=== PATIENT | female | born 1960 | race Caucasian/White ===

== ENCOUNTER 2024-06-10 12:39 | Emergency (ER) | payer OTHER, SELFPAY ==
[2024-06-10 12:44] VITALS: BP 129/85; PULSE 76; TEMP 36.8; O2SAT 97; BMI 28.3
--- NOTE | 2024-06-10 12:53 | ECG_ITS ---
[facility] Test Date: 2024-06-10 Pat Name: JUAN J EVANS Department: Room: - Gender: Female [employer]: : 1960 Requested By: Negar Esparza Order Number: [id number] Reading MD: KADEN SINGH Measurements Intervals [place] Rate: 73 P: 65 DC: 154 QRS: 94 QRSD: 88 T: 78 QT: 364 QTc: 390 Interpretive Statements 1100 Sinus rhythm 7102 Moderate right axis deviation 9110 normal ECG No previous ECG available for comparison Electronically Signed On 06-11-2024 7:49:44 EST by KADEN SINGH
--- NOTE | 2024-06-10 13:25 | XR_ITS ---
The [address] [address] Patient Name: JUAN J EVANS MRN: [id number] date: 1960 Sex: F Assigned Patient Location: ER Current Patient Location: ER Accession/Order Number: [id number] Exam Date: 06/10/2024 13:37 Report Date: 06/10/2024 14:44 At the request of: SAVANNA GUZMÁN Procedure: XR chest 1V EXAM: XR chest 1V HISTORY: cough COMPARISON: None. TECHNIQUE: AP upright chest x-ray. FINDINGS: Lungs clear without infiltrate or edema or other acute process. Heart size normal for technique. Mediastinal contour unremarkable separate from mild prominence of the ascending aorta medial to the right hilum. No pleural effusion or pneumothorax. XR/XR chest 1V IMPRESSION: No acute findings, clear lungs. Electronically authenticated by: WILFRID WONG Date: 06/10/2024 14:44
--- NOTE | 2024-06-10 13:28 | ED_ITS ---
Documented by User: LEXA Mcdonald 06/10/24 16:16 HPI HPI - General Adult General Chief complaint: Upper Respiratory Infection Stated complaint: HEARTBURN, SORE THROAT Time Seen by Provider: 06/10/24 13:15 Source: patient Mode of arrival: walk-in History of Present Illness HPI narrative: 63-year-old female presents to the ER with concerns of heartburn indigestion sensation. Patient states she noticed symptoms late last night, fell asleep and woke up this morning feeling better but then symptoms returned shortly after ambulation. She denies any fevers or chills. She denies any abdominal pain chest pain or shortness of breath she has had a nonproductive cough for several days. Feels like it is a cough something up but cannot. She acknowledges she has had heartburn symptoms on and off in the past but not that frequent she currently still feels the discomfort and points to her mid epigastric region radiating up her esophagus. She at times stimulates it to something being stuck in her throat but can swallow without difficulty patient sees Dr. Parnell she denies any history of heart disease. Onset (ago): day(s) Treatments prior to arrival: Reports none Related Data Previous Rx's ?Medication ?Instructions ?Recorded famotidine 40 mg tablet (Pepcid) 40 mg PO DAILY 21 days #21 tabs 06/10/24 Allergies Allergy/AdvReac Type Severity Reaction Status Date / Time No Known Drug Allergies Allergy Verified 06/10/24 12:48 Opioid HPI Opioid Management Most Recent Opioid Data: No Data to Display Review of Systems ROS Constitutional Denies: fever or chills Eyes Denies: change in vision Ears, nose, mouth, and throat Denies: throat pain, neck pain or throat swelling Cardiovascular Denies: chest pain, palpitations or leg pain with exertion Respiratory Reports: cough; Denies: shortness of breath, wheezing, coughing up blood or chest congestion Gastrointestinal Reports: abdominal pain (epigastric) and heartburn; Denies: nausea, vomiting or diarrhea Genitourinary Denies: painful urination Musculoskeletal Denies: back pain, neck pain or extremity pain Integumentary/Breast Denies: rash or itching Neurological Denies: headache Psychiatric Denies: anxiety or mood swings PFSH PFSH Social History Little interest or pleasure in doing things: not at all Feeling down, depressed, or hopeless: not at all Exam Narrative Exam Narrative: Nurses notes and vital signs reviewed and patient is not hypoxic. General: The patient appears well and in no apparent distress. Patient is resting comfortably on cart. Skin: Warm, dry, no pallor noted. No Rash noted Head: Normocephalic, atraumatic Neck: Supple, trachea mid-line, no tenderness, no lymphadenopathy Eye: Pupils are equal, round and reactive to light, EOMI Ears, Nose, Mouth, and Throat: TM are clear, normal light reflex, oral mucosa is moist, no posterior oropharynx erythema or hypertrophy, uvula is mid-line Cardiovascular: Regular Rate and Rhythm Respiratory: Patient is in no distress, no accessory muscle use, lungs are clear to auscultation, no wheezing, rales or rhonchi. Chest Wall: no tenderness Back: non-tender, no CVA tenderness Musculoskeletal: normal ROM, no tenderness, no swelling GI: Normal bowel sounds, no tenderness to palpation, no masses appreciated. No rebound, guarding, or rigidity noted. Abdomen is nonsurgical Neurological: A&O x4 Psychiatric: Cooperative Constitutional Vital Signs, click to edit/add: Last Vital Signs Temp 98.2 F 06/10/24 12:44 Pulse 76 06/10/24 12:44 Resp 16 06/10/24 12:44 BP 129/85 06/10/24 12:44 Pulse Ox 97 06/10/24 12:44 O2 Del Method Room Air 06/10/24 12:44 Course Vital Signs Vital signs: Vital Signs Temperature 98.2 F 06/10/24 12:44 Pulse Rate 76 06/10/24 12:44 Respiratory Rate 16 06/10/24 12:44 Blood Pressure 129/85 06/10/24 12:44 Pulse Oximetry 97 06/10/24 12:44 Oxygen Delivery Method Room Air 06/10/24 12:44 Temperature 98.2 F 06/10/24 12:44 Pulse Rate 76 06/10/24 12:44 Respiratory Rate 16 06/10/24 12:44 Blood Pressure 129/85 06/10/24 12:44 Pulse Oximetry 97 06/10/24 12:44 Oxygen Delivery Method Room Air 06/10/24 12:44 Medical Decision Making MDM Narrative Medical decision making narrative: Reviewed patient's symptoms of heartburn starting last night going away and then returning today. Currently present since this morning cardiac enzymes will be checked patient medicated for symptoms of heartburn she has not taken any daily medication for this in the past. She denies any symptoms on exertion she denies any floresita chest pain or shortness of breath. Patient reevaluated, symptoms, patient notes she is feeling better, when she takes a drink she can still feel the sensation but it has lessened. She will be given IV Toradol pending final troponin we will start pepcid Patient reports feeling much better after Toradol. Symptoms very minimal. Reviewed laboratory studies, chest x-ray repeat troponin within normal limits. Recommend follow-up to PCP but will start on Pepcid in the interim. Patient may return to the ER if symptoms persist or worsen. The patient is to followup with primary care physician in next 2-3 days or to return to the emergency department should any of the signs or symptoms worsen or new symptoms develop. Patient had questions answered. The patient agrees with the following Diagnosis and Treatment plan and the patient will be discharged home. Lab Data Lab results reviewed: Yes I reviewed the patient's lab results Labs: Lab Results 06/10/24 06/10/24 Range/Units 13:35 14:50 WBC 6.8 (4.0-11.0) 10^3/uL RBC 4.73 (4.20-5.40) 10^6/uL Hgb 14.8 (12.0-16.0) g/dL Hct 43.4 (36.0-48.0) % MCV 91.8 (81.0-99.0) fL MCH 31.3 (26.7-34.0) pg MCHC 34.1 (29.9-35.2) g/dL RDW 11.9 (11.0-15.0) % Plt Count 250 (150-450) 10^3/uL MPV 8.9 L (9.5-13.5) fL Neut % (Auto) 66.8 (43.0-75.0) % Lymph % (Auto) 22.1 (20.5-60.0) % [place] % (Auto) 9.2 (1.7-12.0) % Eos % (Auto) 1.0 (0.9-7.0) % Baso % (Auto) 0.6 (0.2-2.0) % Neut # (Auto) 4.6 (1.4-6.5) 10^3/uL Lymph # (Auto) 1.5 (1.2-3.8) 10^3/uL [place] # (Auto) 0.6 (0.3-0.8) 10^3/uL Eos # (Auto) 0.1 (0.0-0.7) 10^3/uL Baso # (Auto) 0.0 (0.0-0.1) 10^3/uL Abs Immat Gran (auto) 0.02 (0.00-0.03) 10^3/uL Imm/Tot Granulo (auto) 0.3 (0.0-0.5) % Sodium 140 (136-145) mmol/L Potassium 3.8 (3.5-5.1) mmol/L Chloride 105 (98-107) mmol/L Carbon Dioxide 29.7 (21.0-32.0) mmol/L Anion Gap 9.1 BUN 10.0 (7.0-18.0) mg/dL Creatinine 0.93 (0.55-1.02) mg/dL Est GFR ( Amer) >60 (>=60 mL/min/1.73m^2) Est GFR (Non-Af Amer) >60 (>=60 mL/min/1.73m^2) BUN/Creatinine Ratio 10.8 Glucose 94 (74-106) mg/dL Calcium 8.8 (8.5-10.1) mg/dL Total Bilirubin 0.6 (0.2-1.0) mg/dL AST 24 (15-37) U/L ALT 30 (14-59) U/L Alkaline Phosphatase 106 (46-116) U/L Troponin I High Sens <4.0 L <4.0 L (4.0-51.3) pg/mL Total Protein 6.9 (6.4-8.2) g/dL Albumin 3.6 (3.4-5.0) g/dL Globulin 3.3 g/dL Albumin/Globulin Ratio 1.1 Lipase 32.0 (16.0-77.0) U/L Imaging Data Chest x-ray: Attestation: I personally reviewed and interpreted this imaging study as follows: Radiologist's impression: ITS Impressions Chest X-Ray 06/10/24 13:25 IMPRESSION: No acute findings, clear lungs. Electronically authenticated by: WILFRID WONG Date: 06/10/2024 14:44 ECG Data Attestation: I personally reviewed and interpreted this ECG as follows: Interpretation: EKG interpretation: Emergency Department physician interpretation, normal sinus rhythm 73 bpm, no ectopy, no ST segment elevation, RAD Discharge Plan Discharge Chief Complaint: Upper Respiratory Infection Clinical Impression: Chest pain, GERD (gastroesophageal reflux disease) Patient Disposition: Home, Self-Care Time of Disposition Decision: 16:14 Condition: Good Prescriptions / Home Meds: New famotidine [Pepcid] 40 mg tablet 40 mg PO DAILY 21 Days Qty: 21 0RF Print Language: Ecuadorean Instructions: Chest Pain (ED), GERD (Gastroesophageal Reflux Disease) (ED) Referrals: BRIANNA PARNELL [Primary Care Provider] - As soon as possible Documented by User: Aldo Mahmood MD 06/10/24 16:22 HPI HPI - General Adult General Chief complaint: Upper Respiratory Infection Stated complaint: HEARTBURN, SORE THROAT Time Seen by Provider: 06/10/24 13:15 Related Data Previous Rx's ?Medication ?Instructions ?Recorded famotidine 40 mg tablet (Pepcid) 40 mg PO DAILY 21 days #21 tabs 06/10/24 Allergies Allergy/AdvReac Type Severity Reaction Status Date / Time No Known Drug Allergies Allergy Verified 06/10/24 12:48 Opioid HPI Opioid Management Most Recent Opioid Data: No Data to Display PFSH PFSH Social History Little interest or pleasure in doing things: not at all Feeling down, depressed, or hopeless: not at all Exam Constitutional Vital Signs, click to edit/add: Last Vital Signs Temp 98.2 F 06/10/24 12:44 Pulse 76 06/10/24 12:44 Resp 16 06/10/24 12:44 BP 129/85 06/10/24 12:44 Pulse Ox 97 06/10/24 12:44 O2 Del Method Room Air 06/10/24 12:44 Course Vital Signs Vital signs: Vital Signs Temperature 98.2 F 06/10/24 12:44 Pulse Rate 76 06/10/24 12:44 Respiratory Rate 16 06/10/24 12:44 Blood Pressure 129/85 06/10/24 12:44 Pulse Oximetry 97 06/10/24 12:44 Oxygen Delivery Method Room Air 06/10/24 12:44 Temperature 98.2 F 06/10/24 12:44 Pulse Rate 76 06/10/24 12:44 Respiratory Rate 16 06/10/24 12:44 Blood Pressure 129/85 06/10/24 12:44 Pulse Oximetry 97 06/10/24 12:44 Oxygen Delivery Method Room Air 06/10/24 12:44 Medical Decision Making MDM Narrative Medical decision making narrative: Reviewed patient's symptoms of heartburn starting last night going away and then returning today. Currently present since this morning cardiac enzymes will be checked patient medicated for symptoms of heartburn she has not taken any daily medication for this in the past. She denies any symptoms on exertion she denies any floresita chest pain or shortness of breath. Patient reevaluated, symptoms, patient notes she is feeling better, when she takes a drink she can still feel the sensation but it has lessened. She will be given IV Toradol pending final troponin we will start pepcid Patient reports feeling much better after Toradol. Symptoms very minimal. Reviewed laboratory studies, chest x-ray repeat troponin within normal limits. Recommend follow-up to PCP but will start on Pepcid in the interim. Patient may return to the ER if symptoms persist or worsen. The patient is to followup with primary care physician in next 2-3 days or to return to the emergency department should any of the signs or symptoms worsen or new symptoms develop. Patient had questions answered. The patient agrees with the following Diagnosis and Treatment plan and the patient will be discharged home. I, Dr Mahmood, have reviewed the above progress note and course of action in the ER; agree with the above. I have personally seen and evaluated this patient, gone over history and physical, and discussed disposition and treatment plan with the patient. Lab Data Labs: Lab Results 06/10/24 06/10/24 Range/Units 13:35 14:50 WBC 6.8 (4.0-11.0) 10^3/uL RBC 4.73 (4.20-5.40) 10^6/uL Hgb 14.8 (12.0-16.0) g/dL Hct 43.4 (36.0-48.0) % MCV 91.8 (81.0-99.0) fL MCH 31.3 (26.7-34.0) pg MCHC 34.1 (29.9-35.2) g/dL RDW 11.9 (11.0-15.0) % Plt Count 250 (150-450) 10^3/uL MPV 8.9 L (9.5-13.5) fL Neut % (Auto) 66.8 (43.0-75.0) % Lymph % (Auto) 22.1 (20.5-60.0) % [place] % (Auto) 9.2 (1.7-12.0) % Eos % (Auto) 1.0 (0.9-7.0) % Baso % (Auto) 0.6 (0.2-2.0) % Neut # (Auto) 4.6 (1.4-6.5) 10^3/uL Lymph # (Auto) 1.5 (1.2-3.8) 10^3/uL [place] # (Auto) 0.6 (0.3-0.8) 10^3/uL Eos # (Auto) 0.1 (0.0-0.7) 10^3/uL Baso # (Auto) 0.0 (0.0-0.1) 10^3/uL Abs Immat Gran (auto) 0.02 (0.00-0.03) 10^3/uL Imm/Tot Granulo (auto) 0.3 (0.0-0.5) % Sodium 140 (136-145) mmol/L Potassium 3.8 (3.5-5.1) mmol/L Chloride 105 (98-107) mmol/L Carbon Dioxide 29.7 (21.0-32.0) mmol/L Anion Gap 9.1 BUN 10.0 (7.0-18.0) mg/dL Creatinine 0.93 (0.55-1.02) mg/dL Est GFR ( Amer) >60 (>=60 mL/min/1.73m^2) Est GFR (Non-Af Amer) >60 (>=60 mL/min/1.73m^2) BUN/Creatinine Ratio 10.8 Glucose 94 (74-106) mg/dL Calcium 8.8 (8.5-10.1) mg/dL Total Bilirubin 0.6 (0.2-1.0) mg/dL AST 24 (15-37) U/L ALT 30 (14-59) U/L Alkaline Phosphatase 106 (46-116) U/L Troponin I High Sens <4.0 L <4.0 L (4.0-51.3) pg/mL Total Protein 6.9 (6.4-8.2) g/dL Albumin 3.6 (3.4-5.0) g/dL Globulin 3.3 g/dL Albumin/Globulin Ratio 1.1 Lipase 32.0 (16.0-77.0) U/L Imaging Data Chest x-ray: Radiologist's impression: ITS Impressions Chest X-Ray 06/10/24 13:25 IMPRESSION: No acute findings, clear lungs. Electronically authenticated by: WILFRID WONG Date: 06/10/2024 14:44 Discharge Plan Discharge Chief Complaint: Upper Respiratory Infection Clinical Impression: Chest pain, GERD (gastroesophageal reflux disease) Patient Disposition: Home, Self-Care Time of Disposition Decision: 16:14 Condition: Good Prescriptions / Home Meds: New famotidine [Pepcid] 40 mg tablet 40 mg PO DAILY 21 Days Qty: 21 0RF Print Language: Ecuadorean Instructions: Chest Pain (ED), GERD (Gastroesophageal Reflux Disease) (ED) Referrals: TANALYBRIANNA [Primary Care Provider] - As soon as possible
[2024-06-10 13:43] LABS: Basophils Percent Auto 0.6 % (0.2-2.0); Eosinophils Absolute Auto 0.1 10^3/uL (0.0-0.7); Hematocrit 43.4 % (36.0-48.0); Hemoglobin 14.8 g/dL (12.0-16.0); Immature Granulocytes Abs Auto 0.02 10^3/uL (0.00-0.03); Immature Granulocytes Pct Auto 0.3 % (0.0-0.5); Lymphocytes Absolute Auto 1.5 10^3/uL (1.2-3.8); Lymphocytes Percent Auto 22.1 % (20.5-60.0); Mean Corpuscular HGB Conc 34.1 g/dL (29.9-35.2); Mean Corpuscular Hemoglobin 31.3 pg (26.7-34.0); Mean Corpuscular Volume 91.8 fL (81.0-99.0); Mean Platelet Volume 8.9 fL (9.5-13.5); Monocytes Absolute Auto 0.6 10^3/uL (0.3-0.8); Monocytes Percent Auto 9.2 % (1.7-12.0); Neutrophils Absolute Auto 4.6 10^3/uL (1.4-6.5); Neutrophils Percent Auto 66.8 % (43.0-75.0); Platelet Count 250 10^3/uL (150-450); Red Blood Count 4.73 10^6/uL (4.20-5.40); Red Cell Distribution Width 11.9 % (11.0-15.0); White Blood Count 6.8 10^3/uL (4.0-11.0)
[2024-06-10 14:02] LABS: Alanine Aminotransferase 30 U/L (14-59); Albumin Globulin Ratio 1.1; Albumin Level 3.6 g/dL (3.4-5.0); Alkaline Phosphatase 106 U/L (46-116); Anion Gap 9.1; Aspartate Amino Transferase 24 U/L (15-37); BUN Creatinine Ratio 10.8; Bilirubin Total 0.6 mg/dL (0.2-1.0); Calcium 8.8 mg/dL (8.5-10.1); Carbon Dioxide 29.7 mmol/L (21.0-32.0); Chloride 105 mmol/L (98-107); Estimated GFR (African America >60 (>=60 mL/min/1.73m^2); Estimated GFR (Non-African Ame >60 (>=60 mL/min/1.73m^2); Globulin 3.3 g/dL; Glucose 94 mg/dL (74-106); Potassium 3.8 mmol/L (3.5-5.1); Sodium 140 mmol/L (136-145); Total Protein 6.9 g/dL (6.4-8.2); Troponin I High Sensitivity <4.0 pg/mL (4.0-51.3)
[2024-06-10] MEDS: FAMOTIDINE/PF 20 MG/2 ML VIAL IV (14:05)
[2024-06-10] MEDS: ONDANSETRON PF 4 MG/2 ML VIAL IV (14:05)
[2024-06-10] MEDS: lidocaine HCL 15 ML, MAG HYDROX/ALUMINUM HYD/SIMETH 30 ML, HYOSCYAMINE SULFATE 0.25 MG PO (14:06)
[2024-06-10] MEDS: KETOROLAC TROMETHAMINE 30 MG/ML VIAL IVP (15:14)
[2024-06-10 15:53] LABS: Troponin I High Sensitivity <4.0 pg/mL (4.0-51.3)
== END 2024-06-10 16:24 | disposition home or self-care (01) ==
PROVIDERS: Personal Emergency Response Attendant; Emergency Provider Emergency Medicine; PCP Family Medicine
DX: R07.9 Chest pain, unspecified (principal); K21.9 Gastro-esophageal reflux disease without esophagitis
CPT/HCPCS: 36415; 71045; 80053; 83690; 84484; 85025; 93005; 96374; 96375; 99285; J1885; J2405